=== PATIENT | female | born 1980 ===

== ENCOUNTER 2017-01-30 14:35 | Outpatient (CLI) | payer OTHER | END 2017-01-30 14:36 | disposition home or self-care (01) | LOC: LABHHL 14:35 | PROVIDERS: ATTEND Internal Medicine Gastroenterology | DX: K76.0 Fatty (change of) liver, not elsewhere classified (principal); K30 Functional dyspepsia; R11.2 Nausea with vomiting, unspecified | CPT/HCPCS: 88305; 88342 ==